=== PATIENT | female | born 1985 | race Caucasian/White ===

== ENCOUNTER 2018-04-07 15:19 | Emergency (ER) | payer BC ==
[~2018-04-07] VITALS: Ht 154.9 cm; Wt 66.0 kg
[2018-04-07] MEDS ORDERED: IBUPROFEN 400MG TABLET PO ONE (16:30)
[2018-04-07 16:36] LABS: HEMATOCRIT. 37.5 % (36.0-48.0); HEMOGLOBIN. 12.4 g/dL (12.0-16.0); MEAN CORPUSCULAR HEMOGLOBIN 26.5 pg (28.0-32.0); MEAN CORPUSCULAR VOLUME 80.1 fL (81.0-99.0); MEAN PLATELET VOLUME 8.9 fl (7.4-10.4); PLATELET 271 x1000/uL (130-400); RED BLOOD CELL COUNT 4.69 mill/uL (4.2-5.4); RED CELL DISTRIBUTION WIDTH 14.8 % (11.6-14.6)
[2018-04-07 16:43] LABS: CHLORIDE 103 mEq/L (98-107)
[2018-04-07 16:49] LABS: HCG SCREEN NEGATIVE
[2018-04-07 17:05] LABS: PLATELET ESTIMATE NORMAL
[2018-04-07 20:46] VITALS: BP 120/74
== END 2018-04-07 20:48 | disposition home or self-care (01) ==
LOC: ER 15:19
DX: R07.9 Chest pain, unspecified (principal)
CPT/HCPCS: 36415; 71045; 84484; 84703; 85379; 93005; 99284